=== PATIENT | female | born 1985 ===

== ENCOUNTER 2020-02-27 18:08 | Day surgery (SDC) | payer SELFPAY ==
--- NOTE | 2020-02-27 17:42 | PDOC.LDHP ---
Labor and Delivery H&P Chief complaint: abdominal pain (at 28 weeks) HPI: Patient is here visiting, has her MD at [place], [place]. The patient was first seen and evaluated at [place] [facility] and sent here for R/O Labor. At that location, she had a negative RUQ sono and OB sono was normal and S=D. CX looked "closed" on their sono (but not Transvag). 34yo G1 at 28 weeks with midepigastric burning and pain. No sick contacts, no trauma, no LOF, no VB. Good FM. She has a HX of HTN and was on amlodipine prior to . Review of Systems: negative for fever, negative for CTX but does states colicky upper abdominal pain. Current gestational age (weeks): 28 Due date: 05/31/20 Dating criteria: last menstrual period Grav: 1 Current complications: hypertension (has been taken off meds) Past Medical History: Past med: HTN off meds as BPs have been wnl. Was on amlodipine previously. Current medications: pre- vitamins Previous surgical history: appendectomy Social history: none - Physical Exam Vital signs reviewed and normal: yes (afebrile. BP was 120/67 p80 R 18) General: NAD Heart: RRR Lungs: CTAB Abdomen: other (obese but soft nonsurgical) Extremeties: no edema FHT: category 1 - Assessment 28 weeks midepigastric pain, NOS. RUQ sono and CMP at other location was wnl. - Plan Plan: observation in L&D (I have seen the patient at bedside. I have ordered a TVUS for now. I have ordered FFN as standby to send after TVUS if needed ( ordered now as prior to CX manipulation). I have orderd pepcid for the midepigastric discomfort. OBS for now.)
[2020-02-27 17:43] VITALS: BMI 35.1
[~2020-02-27 18:08] MED LIST: hydrALAZINE 20 MG/ML VIAL SLOW IVP PRN
--- NOTE | 2020-02-27 18:11 | ULT ---
Limited pelvic ultrasound INDICATION: Evaluate cervical length; 28 week with written labor and abdominal pain Findings: Grayscale transvaginal ultrasound images demonstrate the cervix measures 3.8 cm without finn dence of funneling. IMPRESSION: Cervical length as above.
--- NOTE | 2020-02-27 18:42 | PDOC.EVN ---
Event Note - Event Note Event Note: cervical length was 3.5cm Pepcid pending pharmacy sending it up
[2020-02-27 18:45] LABS: FFN Internal QC Analyzer PASS (PASS); FFN Internal QC Cassette PASS (PASS); Fetal Fibronectin Negative (Negative)
[2020-02-27] MEDS ORDERED: Famotidine/PF 20 mg/2ml Vial SLOW IVP SCH (18:45)
[2020-02-28] MEDS ORDERED: Famotidine/PF 20 mg/2ml Vial SLOW IVP SCH (09:00)
== END 2020-02-27 20:06 | disposition home or self-care (01) ==
LOC: L&D/OP 18:08
PROVIDERS: ATTEND Obstetrics & Gynecology
DX: O99.89 Other specified diseases and conditions complicating pregnancy, childbirth and the puerperium (principal); R10.13 Epigastric pain; O10.913 Unspecified pre-existing hypertension complicating pregnancy, third trimester; Z3A.28 28 weeks gestation of pregnancy
CPT/HCPCS: 76856; 82731; 96374; 99283; S0028